=== PATIENT | female | born 1995 | race Caucasian/White ===

== ENCOUNTER 2017-02-09 15:58 | Emergency (ER) | payer BC ==
[~2017-02-09] VITALS: Ht 154.9 cm; Wt 85.9 kg
[2017-02-09 16:04] VITALS: TEMP 36.3; Ht 154.9 cm; Wt 85.9 kg
[2017-02-09] MEDS ORDERED: CITA10TA4 PO (16:21)
--- NOTE | 2017-02-09 16:47 | DIAGNOSTIC IMAGING REPORT ---
RIGHT ANKLE MIN 3 VIEWS ROUTINE, RIGHT FOOT MIN 3 VIEWS ROUTINE CLINICAL HISTORY: Right ankle foot pain. COMPARISON STUDY: Right ankle 08/03/2008. FINDINGS: No fracture or dislocation. Soft tissues are unremarkable. No radiopaque foreign bodies. IMPRESSION: No fracture or dislocation within the right ankle or right foot. Electronically signed by: Michael Alvares M.D. 02/09/2017 4:44 PM Dictated Date/Time: 02/09/2017 4:42 PM
--- NOTE | 2017-02-09 17:05 | EMERGENCY ROOM VISIT NOTE ---
ED Visit Note First contact with patient: 16:10 CHIEF COMPLAINT: Right ankle and foot injury HISTORY OF PRESENT ILLNESS: This 21-year-old female presents the ER with chief complaint of right foot and ankle pain. The patient states last night she was under the influence of alcohol and is unsure how she injured her right foot and ankle. The patient admits to increased pain with weightbearing. The patient denies any numbness and tingling in her toes. The patient denies any knee pain. REVIEW OF SYSTEMS: 6 system review was performed and was negative unless stated otherwise in history of present illness. PMH: No prior significant ankle injury. Carpal tunnel surgery SOCIAL HISTORY: Patient lives with her dad and brother. The patient admits to tobacco use and occasional alcohol use. PHYSICAL EXAM: Vital Signs: Were reviewed Reviewed Nurse's notes. GEN.: 21-year -old white female appears in no acute distress. MENTAL STATUS: Alert, oriented , and cooperative. RIGHT ANKLE: The ankle is swollen and tender over the lateral aspect but the skin is intact and there is no ligamentous instability. There is no deformity. RIGHT FOOT: No gross bony deformity noted. The patient has tenderness palpation over the lateral metatarsal region. Otherwise nontender. The foot and toes are warm and well-perfused. Sensation to pain and light touch is intact. EMERGENCY DEPARTMENT COURSE: The patient was evaluated. The patient was offered pain medication but declined. X-ray of the right foot and ankle was ordered and interpreted by the radiologist and myself. DIAGNOSTICS:RIGHT ANKLE MIN 3 VIEWS ROUTINE, RIGHT FOOT MIN 3 VIEWS ROUTINE CLINICAL HISTORY: Right ankle foot pain. COMPARISON STUDY: Right ankle 08/03/2008. FINDINGS: No fracture or dislocation. Soft tissues are unremarkable. No radiopaque foreign bodies. IMPRESSION: No fracture or dislocation within the right ankle or right foot. Electronically signed by: Michael Alvares M.D. 02/09/2017 4:44 PM The patient was informed of the findings. The patient was placed in a gel splint and given crutches. The patient was discharged home in stable condition.. DIAGNOSIS: Sprained right foot and ankle DISCHARGE INSTRUCTIONS: Ice and elevation over the next 24 hours. Ibuprofen, 600 mg every 6 hours if needed for pain. Use crutches and wear gel splint until weightbearing is tolerable. If there is no improvement in 3-5 days followup with your doctor or an orthopedic surgeon . Current/Historical Medications Scheduled Citalopram Hydrobromide (Citalopram Hydrobromide), 10 MG PO DAILY Allergies Coded Allergies: Amoxicillin (Verified Allergy, Unknown, Rash and hives., 09/13/15) Penicillins (Verified Allergy, Unknown, Rash and hives., 09/13/15) Vital Signs Date Time Temp Pulse Resp B/P Pulse Ox O2 Delivery O2 Flow Rate FiO2 02/09/17 16:04 36.3 109 18 151/91 99 Room Air Departure Information Referrals Milton Keating M.D. (PCP) Patient Instructions [facility]
[2017-02-09 17:16] VITALS: BP 122/78; PULSE 66; O2SAT 98
== END 2017-02-09 17:17 | disposition home or self-care (01) ==
LOC: C.EDB 15:59 → C.EDD 17:17
DX: S93.401A Sprain of unspecified ligament of right ankle, initial encounter (principal); S93.601A Unspecified sprain of right foot, initial encounter; X58.XXXA Exposure to other specified factors, initial encounter; F17.200 Nicotine dependence, unspecified, uncomplicated

== ENCOUNTER 2021-02-23 17:18 | Inpatient (IN) ==
[2021-02-23] MEDS ORDERED: DINOPROSTONE 10 MG INSERT PV ONE (18:12)
[2021-02-23] MEDS ORDERED: OXYTOCIN 30 UNITS/500 ML BAG IV PRN (18:12)
--- NOTE | 2021-02-23 18:22 | History & Physical Report ---
Date of Service February 23, 2021 Assessment & Plan (1) Non-reactive NST (non-stress test): 26-year-old G1, P0 at 39 weeks of gestation who was sent from office with nonreactive NST and borderline BPP of 6 out of 10. History of polyhydramnios which was resolved by last ultrasound. Excessive weight gain and lower extremity edema during this . Elevated blood pressure at the office but within normal limits here. heart rate reassuring at 130s with good variability and no decelerations but has not met the criteria for reactivity yet. Discussed the findings and recommended induction of labor today at term due to above risk factors. Patient agrees and very happy with plan. Plan to admit, monitor continuously, labs, start cervical ripening with Cervidil. All questions were answered. (2) Bilateral lower extremity edema: (3) Polyhydramnios affecting in third trimester: (4) Excess weight gain in : History of Present Illness Primary Care Provider: Jessenia Hilario MD Patient is a 26-year-old G1, P0 at 39 weeks of gestation who was sent from office with nonreactive NST and borderline BPP of 6 out of 10 and elevated blood pressures, 156/84. Patient has been complaining of lower extremity edema, discomfort from excessive weight gain and polyhydramnios. Per last ultrasound her GINA was 15 cm and not polyhydramnios anymore. She was scheduled for induction of labor on February 26 and asking for induction today due to the above. She feels irregular contractions, denies leakage of fluid or vaginal bleeding. And she reports good movements. She has been feeling nauseous for the last 2 days and unable to eat but she has been drinking. She denies headache, change in her vision, right upper quadrant or epigastric pain. She has been off work for the last 4 weeks and at home. She denies Covid symptoms nor contact with sick patients. Allergies Allergy/AdvReac Type Severity Reaction Status Date / Time amoxicillin Allergy Unknown Rash and Verified 02/23/21 17:43 hives. Penicillins Allergy Unknown Rash and Verified 02/23/21 17:43 hives. latex AdvReac Hives Verified 02/23/21 17:44 DOXYCYCLINE Allergy Rash Uncoded 02/23/21 17:43 Home Medications Medication Instructions Recorded Confirmed Type vit-iron fum-folic ac 1 tab PO DAILY 12/16/20 02/23/21 History [ 1+1 W/Iron] sertraline 75 mg PO DAILY 12/16/20 02/23/21 History ferrous sulfate 325 mg PO DAILY #60 tab 01/30/21 02/23/21 Rx omeprazole 20 mg PO DAILY #60 cap 01/30/21 02/23/21 Rx Patient History Medical History Back pain Surgical History Hx of carpal tunnel repair (~02/13/16) No history of previous surgery Family History Other Carpal tunnel syndrome, right Coronary heart disease Diabetes Hypertension Denies family history of Ovarian cancer Breast cancer Colorectal cancer Social History Smoking Status: Former smoker Tobacco Type: Cigarettes Second Hand Exposure: No; Hx Alcohol Use: No Hx Substance Use: No Preferred Language: Georgian Communication Ability: Effective Suction Worker Required: No Beliefs That Will Affect Care: None marital status: Single Current Living Situation: Significant Other Current Living Situation Comment: LIves with father current occupational status: employed Other Information That Helps Us Care for You: No Feels Safe at Home: Yes Safety Concerns: Feels Safe At This Time Seatbelt Use: always Sunscreen Use: No 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 Review of Systems All systems reviewed & are unremarkable except as noted in HPI & below Physical Exam Constitutional: WD/WN, vitals as above well developed and well nourished Gastrointestinal (Abdomen): normal bowel sounds, soft, nontender, no hepatosplenomegaly (Obese, skin edema on lower abdomen) Genitourinary: normal external appearance Manual OB Exam: + cervical dilation 2 cm, + cervical effacement 60% and + station high OB Exam Monitor Tracing: + external uterine monitor used and + category I (130's, moderate variability, not meeting criteria for reactivity) Results & Data ([facility]) Vital Signs (Past 12 Hours) Vital Signs Temp Pulse Resp BP 02/23/21 17:37 98 H 136/75 02/23/21 17:31 37.1 C 97 H 20 132/77
[2021-02-23 18:29] LABS: Hematocrit (blood only) 32.7 % (37-47); Hemoglobin 10.6 g/dL (12.0-16.0); Mean Corpuscular Hemoglobin 25.9 pg (25-34); Mean Corpuscular Hgb Conc 32.4 g/dL (32-36); Mean Platelet Volume 10.4 fL (7.4-10.4); Platelet Count 216 K/uL (130-400); RDW Coefficient of Variation 16.7 % (11.5-14.5); RDW Standard Deviation 47.7 fL (36.4-46.3); Red Blood Count 4.09 M/uL (4.2-5.4); White Blood Count 10.15 K/uL (4.8-10.8)
[2021-02-23 18:53] LABS: Albumin Level 2.1 gm/dl (3.4-5.0); BUN Creatinine Ratio 3.7 (10-20); Calcium 8.9 mg/dl (8.5-10.1); Creatinine Clr Calc Pharmacy 205.2 ml/min; Est GFR (African American) 148.3; Est GFR (Non-African American) 127.9; Potassium 3.2 mmol/L (3.5-5.1)
[2021-02-23 18:56] LABS: Albumin Globulin Ratio 0.6 (0.9-2); Bilirubin,Total 0.2 mg/dl (0.2-1); Globulin 3.7 gm/dl (2.5-4.0); Total Protein 5.8 gm/dl (6.4-8.2)
[2021-02-23] MEDS ORDERED: BUTORPHANOL TARTRATE 1 MG/ML VIAL IV PRN (22:13)
[2021-02-23] MEDS ORDERED: ONDANSETRON INJ 2 MG/ML 2 ML VIAL IV PRN (22:13)
--- NOTE | 2021-02-23 22:13 | Obstetrical Progress Note ---
Date of Service February 23, 2021 Subjective Patient is reevalauted She ate dinner nd ready for Cervidil NST had been reactive with good accels, no decel, moderate variability Cervidil is placed in posterior fornix Continue to monitor closely Lab Results 02/23/21 02/23/21 02/23/21 Range/Units 18:18 18:18 18:18 WBC 10.15 (4.8-10.8) K/uL RBC 4.09 L (4.2-5.4) M/uL Hgb 10.6 L (12.0-16.0) g/dL Hct 32.7 L (37-47) % MCV 80.0 (80-100) fL MCH 25.9 (25-34) pg MCHC 32.4 (32-36) g/dL RDW Std Deviation 47.7 H (36.4-46.3) fL RDW Coeff of Lainey 16.7 H (11.5-14.5) % Plt Count 216 (130-400) K/uL MPV 10.4 (7.4-10.4) fL Sodium 139 (136-145) mmol/L Potassium 3.2 L (3.5-5.1) mmol/L Chloride 109 H (98-107) mmol/L Carbon Dioxide 22 (21-32) mmol/L Anion Gap 8.0 (3-11) BUN 2 L (7-18) mg/dl Creatinine 0.57 L (0.6-1.2) mg/dl Est Cr Clr Drug Dosing 205.2 ml/min Est GFR ( Amer) 148.3 Est GFR (Non-Af Amer) 127.9 BUN/Creatinine Ratio 3.7 L (10-20) Glucose 93 (70-99) mg/dl Calcium 8.9 (8.5-10.1) mg/dl Total Bilirubin 0.2 (0.2-1) mg/dl AST 19 (15-37) U/L ALT 18 (12-78) U/L Alkaline Phosphatase 177 H (45-117) U/L Total Protein 5.8 L (6.4-8.2) gm/dl Albumin 2.1 L (3.4-5.0) gm/dl Globulin 3.7 (2.5-4.0) gm/dl Albumin/Globulin Ratio 0.6 L (0.9-2) COVID-19 Eval Order SARS-CoV-2, RNA, NAAT (NEGATIVE) Blood Type A Positive Antibody Screen NEGATIVE 02/23/21 02/23/21 Range/Units 18:18 18:18 WBC (4.8-10.8) K/uL RBC (4.2-5.4) M/uL Hgb (12.0-16.0) g/dL Hct (37-47) % MCV (80-100) fL MCH (25-34) pg MCHC (32-36) g/dL RDW Std Deviation (36.4-46.3) fL RDW Coeff of Lainey (11.5-14.5) % Plt Count (130-400) K/uL MPV (7.4-10.4) fL Sodium (136-145) mmol/L Potassium (3.5-5.1) mmol/L Chloride (98-107) mmol/L Carbon Dioxide (21-32) mmol/L Anion Gap (3-11) BUN (7-18) mg/dl Creatinine (0.6-1.2) mg/dl Est Cr Clr Drug Dosing ml/min Est GFR ( Amer) Est GFR (Non-Af Amer) BUN/Creatinine Ratio (10-20) Glucose (70-99) mg/dl Calcium (8.5-10.1) mg/dl Total Bilirubin (0.2-1) mg/dl AST (15-37) U/L ALT (12-78) U/L Alkaline Phosphatase (45-117) U/L Total Protein (6.4-8.2) gm/dl Albumin (3.4-5.0) gm/dl Globulin (2.5-4.0) gm/dl Albumin/Globulin Ratio (0.9-2) COVID-19 Eval [facility] SARS-CoV-2, RNA, NAAT NEGATIVE (NEGATIVE) Blood Type Antibody Screen Results & Data ([facility]) Vital Signs (Past 12 Hours) Vital Signs Temp Pulse Resp BP 02/23/21 19:26 36.7 C 100 H 18 135/70 02/23/21 17:37 98 H 136/75 02/23/21 17:31 37.1 C 97 H 20 132/77
[2021-02-24] MEDS ORDERED: OXYTOCIN 30 UNITS/500 ML BAG IV PRN ×2 (10:26→23:17)
--- NOTE | 2021-02-24 10:26 | Obstetrical Progress Note ---
Date of Service February 24, 2021 Assessment & Plan Admission and Anticipated Discharge Date Admission Date: February 23, 2021 Physical Exam Genitourinary: OB Exam Abdomen: + estimated weight (8-8.5 lbs) and + irregular contractions Manual OB Exam: + cervical dilation 3 cm, + cervical effacement 70% and + station high OB Exam Monitor Tracing: + external FHT monitor used, + external uterine monitor used, + category I and + normal FHT variability Cervidil removed from vagina Will start Oxytocin to augment contractions Results & Data ([facility]) Vital Signs (Past 12 Hours) Vital Signs Temp Pulse Resp BP Pulse Ox 02/24/21 08:25 100 H 96 02/24/21 08:20 100 H 95 02/24/21 08:15 102 H 93 02/24/21 08:10 100 H 95 02/24/21 08:05 103 H 96 02/24/21 08:00 100 H 96 02/24/21 07:55 106 H 95 02/24/21 07:50 98 H 96 02/24/21 07:45 104 H 96 02/24/21 07:40 105 H 97 02/24/21 07:35 110 H 95 02/24/21 07:30 105 H 97 02/24/21 07:25 101 H 95 02/24/21 07:21 101 H 131/70 02/24/21 07:20 100 H 97 02/24/21 07:15 36.8 C 101 H 16 98 02/24/21 07:10 111 H 93 02/24/21 07:05 107 H 93 02/24/21 07:00 107 H 93 02/24/21 06:55 105 H 94 02/24/21 06:50 108 H 95 02/24/21 06:45 105 H 94 02/24/21 06:40 107 H 93 02/24/21 06:35 108 H 94 02/24/21 06:30 106 H 93 02/24/21 06:25 108 H 93 02/24/21 06:20 108 H 93 02/24/21 06:18 107 H 92 02/24/21 06:15 109 H 92 02/24/21 06:13 105 H 94 02/24/21 06:10 102 H 129/65 98 02/24/21 04:31 96 H 126/70 02/24/21 04:29 37.1 C 18 02/24/21 00:05 92 H 137/82
[2021-02-24] MEDS: LACTATED RINGER'S 1,000 ML IV PRN ×3 (11:13→16:53)
[2021-02-24] MEDS ORDERED: BUPIVACAINE 0.25% 30 ML VIAL ONE (12:12)
[2021-02-24] MEDS ORDERED: SODIUM CHLORIDE 0.9% INJ 10 ML VIAL ONE (12:12)
[2021-02-24] MEDS ORDERED: ePHEDrine sulfate 50 MG/ML AMP ONE (12:12)
[2021-02-24] MEDS ORDERED: fentaNYL citrate 100 MCG/2 ML VIAL ONE ×2 (12:13→20:05)
[2021-02-24] MEDS ORDERED: fentaNYL 2MCG/ML ROPIVACAINE 1.25MG/ML 100 ML BAG EPI ONE (12:13)
--- NOTE | 2021-02-24 12:40 | Anesthesiology Consultation ---
Date of Service February 24, 2021 Assessment & Plan (1) Encounter for pre-operative examination: Chart Review Chart Review: Acceptable Risk for Labor Epidural History Height/Weight Height: 5 ft 4 in Weight: 135.171 kg Allergies Allergy/AdvReac Type Severity Reaction Status Date / Time amoxicillin Allergy Unknown Rash and Verified 02/23/21 17:43 hives. Penicillins Allergy Unknown Rash and Verified 02/23/21 17:43 hives. latex AdvReac Hives Verified 02/23/21 17:44 DOXYCYCLINE Allergy Rash Uncoded 02/23/21 17:43 Medications Home Medications Medication Instructions Recorded Confirmed Last Taken vit-iron fum-folic ac 1 tab PO DAILY 12/16/20 02/23/21 02/23/21 08:30 [ 1+1 W/Iron] sertraline 75 mg PO DAILY 12/16/20 02/23/21 02/23/21 08:30 ferrous sulfate 325 mg PO DAILY #60 tab 01/30/21 02/23/21 02/23/21 08:30 omeprazole 20 mg PO DAILY #60 cap 01/30/21 02/23/21 02/23/21 08:30 Active Medications Generic Name Dose Route Start Last Admin Trade Name Freq PRN Reason Stop Dose Admin Butorphanol Tartrate 1 mg 02/23/21 22:13 02/24/21 06:07 Butorphanol Tartrate 1 Mg/Ml Vial IV 03/25/21 22:12 1 mg Q2HWA PRN Administration Pain Lactated Ringer's 1,000 mls @ 125 mls/hr 02/23/21 18:12 02/24/21 11:13 Lr IV 02/25/21 18:11 125 mls/hr .Q8H PRN Administration L&D Protocol Protocol Oxytocin 30 units in 500 mls @ 2 mls/hr 02/24/21 10:26 02/24/21 11:47 Pitocin IV 02/26/21 10:25 0.12 units/hr .Q24H PRN 2 mls/hr Labor Induction/Augmentation Titration Protocol 0.12 UNITS/HR Past Medical History Medical History Back pain Past Family History Family History Other Carpal tunnel syndrome, right Coronary heart disease Diabetes Hypertension Denies family history of Ovarian cancer Breast cancer Colorectal cancer Past Surgical History Surgical History Hx of carpal tunnel repair (~02/13/16) No history of previous surgery Social History Smoking Status: Former smoker tobacco type: cigarettes Hx Alcohol Use: No Hx Substance Use: No substance use type: does not use Physical Exam Vital Signs Last Vital Signs Temp 36.4 C L 02/24/21 11:08 Pulse 98 H 02/24/21 12:33 Resp 16 02/24/21 11:08 BP 140/73 02/24/21 12:03 Pulse Ox 99 02/24/21 12:33 Testing Laboratory Results 02/23/21 18:18 02/23/21 18:18 Blood Type A Positive 02/23/21 18:18 Antibody Screen NEGATIVE 02/23/21 18:18
[2021-02-24] MEDS ORDERED: NALOXONE HCL 1 MG in SODIUM CHLORIDE 0.9% 1000ML 1,000 ML IV PRN (13:04)
[2021-02-24] MEDS ORDERED: NALOXONE HCL 0.4 MG/1 ML VIAL/CARP IV PRN (13:04)
[2021-02-24] MEDS ORDERED: ePHEDrine sulfate 50 MG/ML AMP IV PRN (13:04)
[2021-02-24] MEDS ORDERED: ONDANSETRON INJ 2 MG/ML 2 ML VIAL IV PRN (13:04)
[2021-02-24] MEDS ORDERED: fentaNYL 2MCG/ML ROPIVACAINE 1.25MG/ML 100 ML BAG EPI PRN (13:04)
--- NOTE | 2021-02-24 16:26 | Obstetrical Progress Note ---
Date of Service February 24, 2021 Assessment & Plan Admission and Anticipated Discharge Date Admission Date: February 23, 2021 Physical Exam Genitourinary: Manual OB Exam: + cervical dilation 3 cm and 4 cm, + cervical effacement 80%, + station -2 and + amniotic fluid clear OB Exam Monitor Tracing: + scalp electrode used, + intra-uterine pressure catheter used, + category I and + normal FHT variability scalp electrode and IUPC placed to better monitor heart tones and contractions due to patients body habitu s Results & Data ([facility]) Vital Signs (Past 12 Hours) Vital Signs Temp Pulse Resp BP Pulse Ox 02/24/21 16:23 104 H 96 02/24/21 16:20 105 H 157/80 H 02/24/21 16:18 112 H 97 02/24/21 16:13 105 H 96 02/24/21 16:08 108 H 97 02/24/21 16:06 105 H 144/80 H 02/24/21 16:03 104 H 96 02/24/21 16:00 18 02/24/21 15:58 102 H 96 02/24/21 15:53 98 H 96 02/24/21 15:50 99 H 143/78 H 02/24/21 15:48 112 H 94 02/24/21 15:43 92 H 95 02/24/21 15:38 96 H 97 02/24/21 15:35 94 H 140/71 02/24/21 15:33 97 H 96 02/24/21 15:28 93 H 96 02/24/21 15:23 100 H 97 02/24/21 15:21 96 H 139/80 02/24/21 15:18 101 H 94 02/24/21 15:13 102 H 94 02/24/21 15:08 104 H 95 02/24/21 15:05 104 H 20 149/78 H 02/24/21 15:03 112 H 94 02/24/21 14:58 101 H 93 02/24/21 14:53 98 H 94 02/24/21 14:50 105 H 139/74 02/24/21 14:48 96 H 95 02/24/21 14:43 97 H 94 02/24/21 14:38 98 H 94 02/24/21 14:36 96 H 130/69 02/24/21 14:33 97 H 93 02/24/21 14:28 95 H 20 93 02/24/21 14:23 94 H 92 02/24/21 14:21 94 H 130/65 02/24/21 14:18 96 H 92 02/24/21 14:13 92 H 92 02/24/21 14:08 96 H 92 02/24/21 14:05 96 H 128/63 02/24/21 14:03 92 H 92 02/24/21 13:58 94 H 90 02/24/21 13:53 97 H 90 02/24/21 13:50 93 H 132/66 02/24/21 13:48 97 H 91 02/24/21 13:43 92 H 91 02/24/21 13:38 94 H 91 02/24/21 13:34 97 H 131/62 02/24/21 13:33 99 H 92 02/24/21 13:32 94 H 18 132/63 02/24/21 13:30 94 H 131/77 02/24/21 13:28 92 H 133/69 91 02/24/21 13:26 100 H 18 131/72 02/24/21 13:24 36.6 C 97 H 18 126/69 02/24/21 13:23 100 H 92 02/24/21 13:22 95 H 131/73 02/24/21 13:20 95 H 18 131/70 02/24/21 13:18 94 H 129/67 93 02/24/21 13:16 99 H 18 128/70 02/24/21 13:14 96 H 129/67 02/24/21 13:13 98 H 93 02/24/21 13:12 100 H 18 134/67 02/24/21 13:10 93 H 18 133/68 02/24/21 13:09 92 H 94 02/24/21 13:08 95 H 18 130/70 96 02/24/21 13:06 94 H 18 130/69 02/24/21 13:04 96 H 18 126/73 02/24/21 13:03 95 H 97 02/24/21 13:02 98 H 18 126/71 02/24/21 13:00 98 H 18 130/75 02/24/21 12:58 95 H 18 133/77 97 02/24/21 12:56 102 H 18 137/79 02/24/21 12:53 102 H 94 02/24/21 12:51 111 H 86 L 02/24/21 12:48 103 H 99 02/24/21 12:43 102 H 99 02/24/21 12:38 91 H 99 02/24/21 12:33 98 H 99 02/24/21 12:28 95 H 99 02/24/21 12:23 97 H 100 02/24/21 12:03 94 H 140/73 02/24/21 11:08 36.4 C L 106 H 16 146/86 H 02/24/21 08:25 100 H 96 02/24/21 08:20 100 H 95 02/24/21 08:15 102 H 93 02/24/21 08:10 100 H 95 02/24/21 08:05 103 H 96 02/24/21 08:00 100 H 96 02/24/21 07:55 106 H 95 02/24/21 07:50 98 H 96 02/24/21 07:45 104 H 96 02/24/21 07:40 105 H 97 02/24/21 07:35 110 H 95 02/24/21 07:30 105 H 97 02/24/21 07:25 101 H 95 02/24/21 07:21 101 H 131/70 02/24/21 07:20 100 H 97 02/24/21 07:15 36.8 C 101 H 16 98 02/24/21 07:10 111 H 93 02/24/21 07:05 107 H 93 02/24/21 07:00 107 H 93 02/24/21 06:55 105 H 94 02/24/21 06:50 108 H 95 02/24/21 06:45 105 H 94 02/24/21 06:40 107 H 93 02/24/21 06:35 108 H 94 02/24/21 06:30 106 H 93 02/24/21 06:25 108 H 93 02/24/21 06:20 108 H 93 02/24/21 06:18 107 H 92 02/24/21 06:15 109 H 92 02/24/21 06:13 105 H 94 02/24/21 06:10 102 H 129/65 98 02/24/21 04:31 96 H 126/70 02/24/21 04:29 37.1 C 18
[2021-02-24] MEDS ORDERED: NURSING L&D Epidural Breakthrough Pain Update ONE (17:23)
[2021-02-24] MEDS ORDERED: LIDOCAINE HCL 2% MPF (LOCAL) 5 ML VIAL INFIL ONE ×2 (20:05→21:27)
--- NOTE | 2021-02-24 20:14 | Communication Note ---
Date of Service: February 24, 2021 Called by staff for pt with labor epidural c/o pain. Dosed with 2% lidocaine 5 cc plus fentanyl 100 mcg. VSS.
--- NOTE | 2021-02-24 21:44 | Communication Note ---
Date of Service: February 24, 2021 Called by RN for labor pt with epidural infusion c/o pain. Cervix at 9 cm. Dosed with 2% lido 5 cc. VSS.
--- NOTE | 2021-02-24 23:15 | Delivery Summary ---
Vaginal Delivery Summary Date of Service February 24, 2021 Vaginal Delivery Summary Delivery Note live male SAQIB over intact perineum with tight nucha cord x1 reduced at delivery. Apgars and weight pending. Cord blood obtained followed by spontaneous delivery of intact placenta. No tears. EBL 300 ml. Final sponge and instrument count are correct. Mom and baby stable.
[2021-02-24] MEDS ORDERED: IBUPROFEN 600 MG TAB PO PRN (23:17)
[2021-02-24] MEDS ORDERED: HYDROCORTISONE ACETATE 25 MG SUPP PR PRN (23:17)
[2021-02-24] MEDS ORDERED: SUPERCREAM 0.870% 15 GM JAR EXT PRN (23:17)
[2021-02-24] MEDS ORDERED: BENZOCAINE 20% AER SPR 82.5 GM CAN EXT PRN (23:17)
[2021-02-24] MEDS ORDERED: DIPHTHERIA/TETANUS/PERTUSSIS 0.5 ML SYR/VIAL IM ONE (23:17)
[2021-02-24] MEDS ORDERED: ACETAMINOPHEN 325 MG TAB PO PRN (23:17)
[2021-02-24] MEDS ORDERED: bisacodyL 10 MG SUPP PR PRN (23:17)
[2021-02-24] MEDS ORDERED: SERTRALINE HCL 50 MG TABLET PO ONE (23:17)
[2021-02-24 23:40] LABS: Base Excess Cord Arterial Bld -5.7 mEq/L (-9-1.8); CO2 Cord Arterial Blood 34 mmHg (39.1-73.5); HCO3 Cord Arterial Blood 19 mmol/L (19.7-28.5); Oxygen Sat Cord Arterial Blood 84.5 % (<60); PO2 Cord Arterial Blood 42 mmHg (4.1-31.7); pH Cord Arterial Blood 7.36 (7.1-7.38)
[2021-02-24 23:41] LABS: Base Excess Cord Venous Blood -5.9 mEq/L (-7.7-1.9); Cord Venous Blood HCO3 18 mmol/L (18.4-26.8); Cord Venous Blood PCO2 34 mmHg (30.4-57.2); Cord Venous Blood PO2 39 mmHg (14.1-43.3); Cord Venous Blood pH 7.36 (7.20-7.44)
--- NOTE | 2021-02-25 00:22 | Anesthesia Procedure Note ---
Date of Service February 25, 2021 Anesthesia Post Epidural Note Vital Signs Vital Signs: Temp Pulse Resp BP Pulse Ox 37.1 C 136 H 18 136/56 L 100 02/24/21 22:00 02/25/21 00:14 02/24/21 23:57 02/25/21 00:14 02/24/21 23:08 Pain Intensity Bilateral Abdomen: Pain Intensity: 0 Notes Mental Status: alert / awake / arousable Nausea / Vomiting: adequately controlled Pain: adequately controlled Airway Patency, RR, SpO2: stable & adequate BP & HR: stable & adequate Hydration State: stable & adequate Neuraxial Anesthesia: was administered and sensory block is resolving Anesthetic Complications: no major complications apparent and Pt Satisfied with anesthetic care Epidural: Removed without complications and With tip intact
[2021-02-25 06:29] LABS: Hematocrit (blood only) 25.5 % (37-47); Hemoglobin 8.4 g/dL (12.0-16.0); Mean Corpuscular Hemoglobin 26.3 pg (25-34); Mean Corpuscular Hgb Conc 32.9 g/dL (32-36); Mean Corpuscular Volume 79.9 fL (80-100); Mean Platelet Volume 10.7 fL (7.4-10.4); Platelet Count 237 K/uL (130-400); RDW Coefficient of Variation 16.9 % (11.5-14.5); RDW Standard Deviation 48.7 fL (36.4-46.3); Red Blood Count 3.19 M/uL (4.2-5.4)
[2021-02-25] MEDS ORDERED: FERROUS SULFATE 325 MG TAB PO SCH (09:00)
[2021-02-25] MEDS ORDERED: NON-FORMULARY MEDICATION (Prenatal Vit-Iron Fum-Folic Ac 65 mg iron- 1 mg Tablet) PO SCH (09:00)
[2021-02-25] MEDS: DOCUSATE SODIUM 100 MG CAP PO SCH ×2 (09:17→19:57)
[2021-02-25] MEDS: PRENATAL VITAMIN 1 TAB PO SCH (09:17)
[2021-02-25] MEDS: FERROUS SULFATE 325 MG TAB PO SCH (09:18)
[2021-02-25] MEDS: PANTOprazole 40 MG TAB PO SCH (09:18)
[2021-02-25] MEDS: SERTRALINE HCL 50 MG TABLET PO SCH (09:18)
--- NOTE | 2021-02-25 10:12 | Obstetrical Progress Note ---
Date of Service February 25, 2021 Assessment & Plan Admission and Anticipated Discharge Date Admission Date: February 23, 2021 Subjective PPD#1 doing well tolerating diet passing gas out of bed Physical Exam Constitutional: WD/WN, vitals as above comfortable abdomen soft and non- tender fundus firm edema is down from yesterday but still 1+ bilaterally neg Alison's tent d/c in AM Results & Data ([facility]) Vital Signs (Past 12 Hours) Vital Signs Temp Pulse Pulse Resp BP BP Pulse Ox 02/25/21 08:08 37.1 C 97 H 18 101/66 92 02/25/21 04:58 36.8 C 108 H 18 107/61 02/25/21 01:36 36.8 C 123 H 18 108/63 02/25/21 01:15 118 H 18 109/54 L 02/25/21 01:14 118 H 109/54 L 02/25/21 01:12 123 H 185/134 H 02/25/21 00:45 125 H 106/54 L 02/25/21 00:42 125 H 18 106/54 L 02/25/21 00:14 136 H 136/56 L 02/25/21 00:12 136 H 18 136/56 L 02/24/21 23:57 133 H 18 156/66 H 02/24/21 23:42 18 143/65 H 02/24/21 23:27 109 H 18 143/65 H 02/24/21 23:12 90 18 143/65 H 02/24/21 23:08 94 H 100 02/24/21 23:03 96 H 99 02/24/21 23:02 94 H 136/59 L 02/24/21 22:58 114 H 99 02/24/21 22:53 108 H 97 02/24/21 22:48 141 H 97 02/24/21 22:43 147 H 97 02/24/21 22:38 128 H 97 02/24/21 22:33 112 H 98 02/24/21 22:28 105 H 97 02/24/21 22:23 108 H 94 02/24/21 22:18 106 H 95 02/24/21 22:13 110 H 96 02/24/21 22:12 117 H 141/70 H
[2021-02-25] MEDS ORDERED: bisacodyL 5 MG TABEC PO SCH (20:00)
[2021-02-26 06:48] LABS: Hematocrit (blood only) 20.7 % (37-47); Hemoglobin 6.8 g/dL (12.0-16.0)
[2021-02-26] MEDS ORDERED: FERROUS SULFATE 325 MG TAB PO SCH (07:30)
--- NOTE | 2021-02-26 07:35 | Obstetrical Progress Note ---
Date of Service February 26, 2021 Assessment & Plan Admission and Anticipated Discharge Date Admission Date: February 23, 2021 Subjective Patient is seen and examined. She feels well, no complaints. Desires d/c today Ambulating without dizziness Voiding without difficulty Tolerating regular diet with out N&V Bleeding is minimal No HENSON/ Change in vision/ palpitations/fever/ chills/ CP/ SOB/ N&V/ Leg pain Bottle feeding without problems Vital Signs Temp Pulse Resp BP Pulse Ox 02/26/21 00:00 37.1 C 104 H 16 137/81 96 02/25/21 19:50 37.2 C 98 H 18 108/70 97 02/25/21 16:30 36.8 C 99 H 18 117/65 96 02/25/21 11:45 37.2 C 96 H 18 101/58 L 96 02/25/21 08:08 37.1 C 97 H 18 101/66 92 Lab Results 02/23/21 02/23/21 02/23/21 Range/Units 18:18 18:18 18:18 WBC 10.15 (4.8-10.8) K/uL RBC 4.09 L (4.2-5.4) M/uL Hgb 10.6 L (12.0-16.0) g/dL Hct 32.7 L (37-47) % MCV 80.0 (80-100) fL MCH 25.9 (25-34) pg MCHC 32.4 (32-36) g/dL RDW Std Deviation 47.7 H (36.4-46.3) fL RDW Coeff of Lainey 16.7 H (11.5-14.5) % Plt Count 216 (130-400) K/uL MPV 10.4 (7.4-10.4) fL Cord ABG pH (7.1-7.38) Cord ABG pCO2 (39.1-73.5) mmHg Cord ABG pO2 (4.1-31.7) mmHg Cord ABG HCO3 (19.7-28.5) mmol/L Cord ABG Base Excess (-9-1.8) mEq/L Cord ABG O2 Sat (<60) % Cord VBG pH (7.20-7.44) Cord VBG pCO2 (30.4-57.2) mmHg Cord VBG pO2 (14.1-43.3) mmHg Cord VBG HCO3 (18.4-26.8) mmol/L Cord VBG Base Excess (-7.7-1.9) mEq/L Cord VBG O2 Sat (<68) % Blood Gas Comments Sodium 139 (136-145) mmol/L Potassium 3.2 L (3.5-5.1) mmol/L Chloride 109 H (98-107) mmol/L Carbon Dioxide 22 (21-32) mmol/L Anion Gap 8.0 (3-11) BUN 2 L (7-18) mg/dl Creatinine 0.57 L (0.6-1.2) mg/dl Est Cr Clr Drug Dosing 205.2 ml/min Est GFR ( Amer) 148.3 Est GFR (Non-Af Amer) 127.9 BUN/Creatinine Ratio 3.7 L (10-20) Glucose 93 (70-99) mg/dl Calcium 8.9 (8.5-10.1) mg/dl Total Bilirubin 0.2 (0.2-1) mg/dl AST 19 (15-37) U/L ALT 18 (12-78) U/L Alkaline Phosphatase 177 H (45-117) U/L Total Protein 5.8 L (6.4-8.2) gm/dl Albumin 2.1 L (3.4-5.0) gm/dl Globulin 3.7 (2.5-4.0) gm/dl Albumin/Globulin Ratio 0.6 L (0.9-2) COVID-19 Eval Order SARS-CoV-2, RNA, NAAT (NEGATIVE) Blood Type A Positive Antibody Screen NEGATIVE 02/23/21 02/23/21 02/23/21 Range/Units 18:18 18:18 23:36 WBC (4.8-10.8) K/uL RBC (4.2-5.4) M/uL Hgb (12.0-16.0) g/dL Hct (37-47) % MCV (80-100) fL MCH (25-34) pg MCHC (32-36) g/dL RDW Std Deviation (36.4-46.3) fL RDW Coeff of Lainey (11.5-14.5) % Plt Count (130-400) K/uL MPV (7.4-10.4) fL Cord ABG pH 7.36 (7.1-7.38) Cord ABG pCO2 34 L (39.1-73.5) mmHg Cord ABG pO2 42 H (4.1-31.7) mmHg Cord ABG HCO3 19 L (19.7-28.5) mmol/L Cord ABG Base Excess -5.7 (-9-1.8) mEq/L Cord ABG O2 Sat 84.5 H (<60) % Cord VBG pH (7.20-7.44) Cord VBG pCO2 (30.4-57.2) mmHg Cord VBG pO2 (14.1-43.3) mmHg Cord VBG HCO3 (18.4-26.8) mmol/L Cord VBG Base Excess (-7.7-1.9) mEq/L Cord VBG O2 Sat (<68) % Blood Gas Comments INFANT A Sodium (136-145) mmol/L Potassium (3.5-5.1) mmol/L Chloride (98-107) mmol/L Carbon Dioxide (21-32) mmol/L Anion Gap (3-11) BUN (7-18) mg/dl Creatinine (0.6-1.2) mg/dl Est Cr Clr Drug Dosing ml/min Est GFR ( Amer) Est GFR (Non-Af Amer) BUN/Creatinine Ratio (10-20) Glucose (70-99) mg/dl Calcium (8.5-10.1) mg/dl Total Bilirubin (0.2-1) mg/dl AST (15-37) U/L ALT (12-78) U/L Alkaline Phosphatase (45-117) U/L Total Protein (6.4-8.2) gm/dl Albumin (3.4-5.0) gm/dl Globulin (2.5-4.0) gm/dl Albumin/Globulin Ratio (0.9-2) COVID-19 Eval Order Covid19 [facility] SARS-CoV-2, RNA, NAAT NEGATIVE (NEGATIVE) Blood Type Antibody Screen 02/23/21 02/25/21 02/26/21 Range/Units 23:36 05:46 06:06 WBC 14.60 H (4.8-10.8) K/uL RBC 3.19 L (4.2-5.4) M/uL Hgb 8.4 L 6.8 L* (12.0-16.0) g/dL Hct 25.5 L 20.7 L* (37-47) % MCV 79.9 L (80-100) fL MCH 26.3 (25-34) pg MCHC 32.9 (32-36) g/dL RDW Std Deviation 48.7 H (36.4-46.3) fL RDW Coeff of Lainey 16.9 H (11.5-14.5) % Plt Count 237 (130-400) K/uL MPV 10.7 H (7.4-10.4) fL Cord ABG pH (7.1-7.38) Cord ABG pCO2 (39.1-73.5) mmHg Cord ABG pO2 (4.1-31.7) mmHg Cord ABG HCO3 (19.7-28.5) mmol/L Cord ABG Base Excess (-9-1.8) mEq/L Cord ABG O2 Sat (<60) % Cord VBG pH 7.36 (7.20-7.44) Cord VBG pCO2 34 (30.4-57.2) mmHg Cord VBG pO2 39 (14.1-43.3) mmHg Cord VBG HCO3 18 L (18.4-26.8) mmol/L Cord VBG Base Excess -5.9 (-7.7-1.9) mEq/L Cord VBG O2 Sat 84.0 H (<68) % Blood Gas Comments INFANT A Sodium (136-145) mmol/L Potassium (3.5-5.1) mmol/L Chloride (98-107) mmol/L Carbon Dioxide (21-32) mmol/L Anion Gap (3-11) BUN (7-18) mg/dl Creatinine (0.6-1.2) mg/dl Est Cr Clr Drug Dosing ml/min Est GFR ( Amer) Est GFR (Non-Af Amer) BUN/Creatinine Ratio (10-20) Glucose (70-99) mg/dl Calcium (8.5-10.1) mg/dl Total Bilirubin (0.2-1) mg/dl AST (15-37) U/L ALT (12-78) U/L Alkaline Phosphatase (45-117) U/L Total Protein (6.4-8.2) gm/dl Albumin (3.4-5.0) gm/dl Globulin (2.5-4.0) gm/dl Albumin/Globulin Ratio (0.9-2) COVID-19 Eval Order SARS-CoV-2, RNA, NAAT (NEGATIVE) Blood Type Antibody Screen PE: General: Alert, orientedx3, NAD CVS S1S2 RR, 99 bpm Lungs; CTAB Abd: soft, NT, fundus firm, below Umbilicus Perineum intact, Lochia rubra minimal Ext; NT, 2+/2+ edema, 1+/1+ DTR AP: 26 yo s/p , ppd# 1 VSS Afebrile doing well Anemic: asymptomatic, discussed blood transfusion with possible risks, vs oral iron She is not sure Plan to ambulate and recheck CBC Continue routine care All questions were answered Results [facility] Data ([facility]) Vital Signs (Past 12 Hours) Vital Signs Temp Pulse Resp BP Pulse Ox 02/26/21 00:00 37.1 C 104 H 16 137/81 96 02/25/21 19:50 37.2 C 98 H 18 108/70 97
[2021-02-26 07:49] LABS: Hematocrit (blood only) 20.5 % (37-47); Hemoglobin 6.8 g/dL (12.0-16.0); Mean Corpuscular Hemoglobin 26.4 pg (25-34); Mean Corpuscular Hgb Conc 33.2 g/dL (32-36); Mean Corpuscular Volume 79.5 fL (80-100); Mean Platelet Volume 9.5 fL (7.4-10.4); Platelet Count 213 K/uL (130-400); RDW Standard Deviation 49.1 fL (36.4-46.3); Red Blood Count 2.58 M/uL (4.2-5.4)
[2021-02-26] MEDS: FERROUS SULFATE 325 MG TAB PO SCH (07:55)
[2021-02-26 08:11] LABS: Basophils # (auto) 0.02 K/uL (0-0.2); Basophils % (auto) 0.2 %; Eosinophils # (auto) 0.08 K/uL (0-0.5); Eosinophils % (auto) 0.6 %; Immature Granulocytes # (auto) 0.07 K/uL (0.00-0.02); Immature Granulocytes % (auto) 0.5 %; Lymphocytes # (auto) 3.52 K/uL (1.2-3.4); Lymphocytes % (auto) 27.5 %; Monocytes # (auto) 0.78 K/uL (0.11-0.59); Monocytes % (auto) 6.1 %; Neutrophils # (auto) 8.33 K/uL (1.4-6.5); Neutrophils % (auto) 65.1 %; Polychromasia 1+
[2021-02-26] MEDS: PANTOprazole 40 MG TAB PO SCH (08:23)
[2021-02-26] MEDS: DOCUSATE SODIUM 100 MG CAP PO SCH (08:23)
[2021-02-26] MEDS: PRENATAL VITAMIN 1 TAB PO SCH (08:23)
[2021-02-26] MEDS: SERTRALINE HCL 50 MG TABLET PO SCH (08:24)
--- NOTE | 2021-02-26 08:58 | Obstetrical Progress Note ---
Date of Service February 26, 2021 Assessment & Plan Admission and Anticipated Discharge Date Admission Date: February 23, 2021 Subjective Patient is reevaluated She feels well, no complaints and likes to be discharged She ambulated in the [address] way with no dizziness or light headedness Her repeat labs: Lab Results 02/23/21 02/23/21 02/23/21 Range/Units 18:18 18:18 18:18 WBC 10.15 (4.8-10.8) K/uL RBC 4.09 L (4.2-5.4) M/uL Hgb 10.6 L (12.0-16.0) g/dL Hct 32.7 L (37-47) % MCV 80.0 (80-100) fL MCH 25.9 (25-34) pg MCHC 32.4 (32-36) g/dL RDW Std Deviation 47.7 H (36.4-46.3) fL RDW Coeff of Lainey 16.7 H (11.5-14.5) % Plt Count 216 (130-400) K/uL MPV 10.4 (7.4-10.4) fL Immature Gran % (Auto) % Neut % (Auto) % Lymph % (Auto) % [place] % (Auto) % Eos % (Auto) % Baso % (Auto) % Neut # (Auto) (1.4-6.5) K/uL Lymph # (Auto) (1.2-3.4) K/uL [place] # (Auto) (0.11-0.59) K/uL Eos # (Auto) (0-0.5) K/uL Baso # (Auto) (0-0.2) K/uL Immature Gran # (Auto) (0.00-0.02) K/uL Polychromasia Cord ABG pH (7.1-7.38) Cord ABG pCO2 (39.1-73.5) mmHg Cord ABG pO2 (4.1-31.7) mmHg Cord ABG HCO3 (19.7-28.5) mmol/L Cord ABG Base Excess (-9-1.8) mEq/L Cord ABG O2 Sat (<60) % Cord VBG pH (7.20-7.44) Cord VBG pCO2 (30.4-57.2) mmHg Cord VBG pO2 (14.1-43.3) mmHg Cord VBG HCO3 (18.4-26.8) mmol/L Cord VBG Base Excess (-7.7-1.9) mEq/L Cord VBG O2 Sat (<68) % Blood Gas Comments Sodium 139 (136-145) mmol/L Potassium 3.2 L (3.5-5.1) mmol/L Chloride 109 H (98-107) mmol/L Carbon Dioxide 22 (21-32) mmol/L Anion Gap 8.0 (3-11) BUN 2 L (7-18) mg/dl Creatinine 0.57 L (0.6-1.2) mg/dl Est Cr Clr Drug Dosing 205.2 ml/min Est GFR ( Amer) 148.3 Est GFR (Non-Af Amer) 127.9 BUN/Creatinine Ratio 3.7 L (10-20) Glucose 93 (70-99) mg/dl Calcium 8.9 (8.5-10.1) mg/dl Total Bilirubin 0.2 (0.2-1) mg/dl AST 19 (15-37) U/L ALT 18 (12-78) U/L Alkaline Phosphatase 177 H (45-117) U/L Total Protein 5.8 L (6.4-8.2) gm/dl Albumin 2.1 L (3.4-5.0) gm/dl Globulin 3.7 (2.5-4.0) gm/dl Albumin/Globulin Ratio 0.6 L (0.9-2) COVID-19 Eval Order SARS-CoV-2, RNA, NAAT (NEGATIVE) Blood Type A Positive Antibody Screen NEGATIVE 02/23/21 02/23/21 02/23/21 Range/Units 18:18 18:18 23:36 WBC (4.8-10.8) K/uL RBC (4.2-5.4) M/uL Hgb (12.0-16.0) g/dL Hct (37-47) % MCV (80-100) fL MCH (25-34) pg MCHC (32-36) g/dL RDW Std Deviation (36.4-46.3) fL RDW Coeff of Lainey (11.5-14.5) % Plt Count (130-400) K/uL MPV (7.4-10.4) fL Immature Gran % (Auto) % Neut % (Auto) % Lymph % (Auto) % [place] % (Auto) % Eos % (Auto) % Baso % (Auto) % Neut # (Auto) (1.4-6.5) K/uL Lymph # (Auto) (1.2-3.4) K/uL [place] # (Auto) (0.11-0.59) K/uL Eos # (Auto) (0-0.5) K/uL Baso # (Auto) (0-0.2) K/uL Immature Gran # (Auto) (0.00-0.02) K/uL Polychromasia Cord ABG pH 7.36 (7.1-7.38) Cord ABG pCO2 34 L (39.1-73.5) mmHg Cord ABG pO2 42 H (4.1-31.7) mmHg Cord ABG HCO3 19 L (19.7-28.5) mmol/L Cord ABG Base Excess -5.7 (-9-1.8) mEq/L Cord ABG O2 Sat 84.5 H (<60) % Cord VBG pH (7.20-7.44) Cord VBG pCO2 (30.4-57.2) mmHg Cord VBG pO2 (14.1-43.3) mmHg Cord VBG HCO3 (18.4-26.8) mmol/L Cord VBG Base Excess (-7.7-1.9) mEq/L Cord VBG O2 Sat (<68) % Blood Gas Comments INFANT A Sodium (136-145) mmol/L Potassium (3.5-5.1) mmol/L Chloride (98-107) mmol/L Carbon Dioxide (21-32) mmol/L Anion Gap (3-11) BUN (7-18) mg/dl Creatinine (0.6-1.2) mg/dl Est Cr Clr Drug Dosing ml/min Est GFR ( Amer) Est GFR (Non-Af Amer) BUN/Creatinine Ratio (10-20) Glucose (70-99) mg/dl Calcium (8.5-10.1) mg/dl Total Bilirubin (0.2-1) mg/dl AST (15-37) U/L ALT (12-78) U/L Alkaline Phosphatase (45-117) U/L Total Protein (6.4-8.2) gm/dl Albumin (3.4-5.0) gm/dl Globulin (2.5-4.0) gm/dl Albumin/Globulin Ratio (0.9-2) COVID-19 Eval Order Covid19 [facility] SARS-CoV-2, RNA, NAAT NEGATIVE (NEGATIVE) Blood Type Antibody Screen 02/23/21 02/25/21 02/26/21 Range/Units 23:36 05:46 06:06 WBC 14.60 H (4.8-10.8) K/uL RBC 3.19 L (4.2-5.4) M/uL Hgb 8.4 L 6.8 L* (12.0-16.0) g/dL Hct 25.5 L 20.7 L* (37-47) % MCV 79.9 L (80-100) fL MCH 26.3 (25-34) pg MCHC 32.9 (32-36) g/dL RDW Std Deviation 48.7 H (36.4-46.3) fL RDW Coeff of Lainey 16.9 H (11.5-14.5) % Plt Count 237 (130-400) K/uL MPV 10.7 H (7.4-10.4) fL Immature Gran % (Auto) % Neut % (Auto) % Lymph % (Auto) % [place] % (Auto) % Eos % (Auto) % Baso % (Auto) % Neut # (Auto) (1.4-6.5) K/uL Lymph # (Auto) (1.2-3.4) K/uL [place] # (Auto) (0.11-0.59) K/uL Eos # (Auto) (0-0.5) K/uL Baso # (Auto) (0-0.2) K/uL Immature Gran # (Auto) (0.00-0.02) K/uL Polychromasia Cord ABG pH (7.1-7.38) Cord ABG pCO2 (39.1-73.5) mmHg Cord ABG pO2 (4.1-31.7) mmHg Cord ABG HCO3 (19.7-28.5) mmol/L Cord ABG Base Excess (-9-1.8) mEq/L Cord ABG O2 Sat (<60) % Cord VBG pH 7.36 (7.20-7.44) Cord VBG pCO2 34 (30.4-57.2) mmHg Cord VBG pO2 39 (14.1-43.3) mmHg Cord VBG HCO3 18 L (18.4-26.8) mmol/L Cord VBG Base Excess -5.9 (-7.7-1.9) mEq/L Cord VBG O2 Sat 84.0 H (<68) % Blood Gas Comments INFANT A Sodium (136-145) mmol/L Potassium (3.5-5.1) mmol/L Chloride (98-107) mmol/L Carbon Dioxide (21-32) mmol/L Anion Gap (3-11) BUN (7-18) mg/dl Creatinine (0.6-1.2) mg/dl Est Cr Clr Drug Dosing ml/min Est GFR ( Amer) Est GFR (Non-Af Amer) BUN/Creatinine Ratio (10-20) Glucose (70-99) mg/dl Calcium (8.5-10.1) mg/dl Total Bilirubin (0.2-1) mg/dl AST (15-37) U/L ALT (12-78) U/L Alkaline Phosphatase (45-117) U/L Total Protein (6.4-8.2) gm/dl Albumin (3.4-5.0) gm/dl Globulin (2.5-4.0) gm/dl Albumin/Globulin Ratio (0.9-2) COVID-19 Eval Order SARS-CoV-2, RNA, NAAT (NEGATIVE) Blood Type Antibody Screen 02/26/21 Range/Units 07:37 WBC 12.80 H (4.8-10.8) K/uL RBC 2.58 L (4.2-5.4) M/uL Hgb 6.8 L* (12.0-16.0) g/dL Hct 20.5 L* (37-47) % MCV 79.5 L (80-100) fL MCH 26.4 (25-34) pg MCHC 33.2 (32-36) g/dL RDW Std Deviation 49.1 H (36.4-46.3) fL RDW Coeff of Lainey 17.0 H (11.5-14.5) % Plt Count 213 (130-400) K/uL MPV 9.5 (7.4-10.4) fL Immature Gran % (Auto) 0.5 % Neut % (Auto) 65.1 % Lymph % (Auto) 27.5 % [place] % (Auto) 6.1 % Eos % (Auto) 0.6 % Baso % (Auto) 0.2 % Neut # (Auto) 8.33 H (1.4-6.5) K/uL Lymph # (Auto) 3.52 H (1.2-3.4) K/uL [place] # (Auto) 0.78 H (0.11-0.59) K/uL Eos # (Auto) 0.08 (0-0.5) K/uL Baso # (Auto) 0.02 (0-0.2) K/uL Immature Gran # (Auto) 0.07 H (0.00-0.02) K/uL Polychromasia 1+ Cord ABG pH (7.1-7.38) Cord ABG pCO2 (39.1-73.5) mmHg Cord ABG pO2 (4.1-31.7) mmHg Cord ABG HCO3 (19.7-28.5) mmol/L Cord ABG Base Excess (-9-1.8) mEq/L Cord ABG O2 Sat (<60) % Cord VBG pH (7.20-7.44) Cord VBG pCO2 (30.4-57.2) mmHg Cord VBG pO2 (14.1-43.3) mmHg Cord VBG HCO3 (18.4-26.8) mmol/L Cord VBG Base Excess (-7.7-1.9) mEq/L Cord VBG O2 Sat (<68) % Blood Gas Comments Sodium (136-145) mmol/L Potassium (3.5-5.1) mmol/L Chloride (98-107) mmol/L Carbon Dioxide (21-32) mmol/L Anion Gap (3-11) BUN (7-18) mg/dl Creatinine (0.6-1.2) mg/dl Est Cr Clr Drug Dosing ml/min Est GFR ( Amer) Est GFR (Non-Af Amer) BUN/Creatinine Ratio (10-20) Glucose (70-99) mg/dl Calcium (8.5-10.1) mg/dl Total Bilirubin (0.2-1) mg/dl AST (15-37) U/L ALT (12-78) U/L Alkaline Phosphatase (45-117) U/L Total Protein (6.4-8.2) gm/dl Albumin (3.4-5.0) gm/dl Globulin (2.5-4.0) gm/dl Albumin/Globulin Ratio (0.9-2) COVID-19 Eval Order SARS-CoV-2, RNA, NAAT (NEGATIVE) Blood Type Antibody Screen Discussed H&H is still low and she may get symptomatic later Recommended blood transfusion but she declined She desires d/c today Recommended observation/monitoring until after lunch nd she agreed Results & Data ([facility]) Vital Signs (Past 12 Hours) Vital Signs Temp Pulse Resp BP Pulse Ox 02/26/21 07:20 36.8 C 99 H 18 126/78 97 02/26/21 00:00 37.1 C 104 H 16 137/81 96
== END 2021-02-26 12:55 | disposition home or self-care (01) | DRG 807 ==
LOC: OPB 17:18 → 4S1 17:20 → 4N 02-25 01:37